=== PATIENT | male | born 1940 | race Caucasian/White ===

== ENCOUNTER 2023-10-19 13:22 | Emergency (ER) | payer MEDICARE, BC, SELFPAY ==
[2023-10-19] VITALS (7 sets, daily range): BP systolic 138–156; BP diastolic 71–90; PULSE 75–86; RESP 18; TEMP 36.4; O2SAT 94–97; BMI 25.4
[2023-10-19 14:46] LABS: Appearance Urine Cloudy (Clear); Bilirubin Urine Negative (Negative); Blood Urine Negative (Negative); Color Urine Yellow (Yellow); Glucose Urine Negative (Negative); Ketones Urine Negative (Negative); Leukocyte Esterase Urine Negative (Negative); Nitrite Urine Negative (Negative); Protein Urine 1+ (Negative); Urobilinogen Urine 0.2 (0.2-1.0)
--- NOTE | 2023-10-19 14:46 | ED.GENADULT ---
HPI - General Adult General Chief complaint: Unspecified Complaint, Adult Stated complaint: Dizziness, abdominal pain Time Seen by Provider: 10/19/23 14:46 History of Present Illness HPI narrative: Patient had sudden onset of abdominal pain , became diaphoretic and faint almost to the point of passing out. He then went to bathroom and had large episode of diarrhea and laid down in bedroom and then contacted EMS. Patient now denies pain but reports colonic cramping. 82-year-old man presenting to the emergency department for evaluation after nearly passed out. There is a history of atrial fibrillation and is anticoagulated. He reports the rather abrupt onset of some abdominal pain. He became sweaty and got lightheaded like he was about to pass out. Went to the bathroom had a large diarrheal episode. He laid down in his bedroom and a called EMS. He feels better now but having some cramping in his abdomen. No melena or hematochezia is reported. Is not having any chest pain or shortness of breath. No fever. No cough. No particular exposures to illness noted. I reviewed EKG prior to seeing Mr. Smith. No noted headache. Related Data Home Medications Medication Instructions Recorded Confirmed Eliquis 10/19/23 hydrochlorothiazide 10/19/23 verapamil 10/19/23 Allergies Allergy/AdvReac Type Severity Reaction Status Date / Time No Known Drug Allergies Allergy Verified 10/19/23 13:33 Review of Systems Status of ROS: Reports: 6 or more systems reviewed and unremarkable except as noted in History and below PFSH PFSH Social History Smoking Status: Never smoker How often do you have a drink containing alcohol: never AUDIT-C Alcohol total score: 0 Non-prescribed substance use: denies use Exam Narrative: Exam Narrative: Pleasant. NAD. Vitals look good at this time. Skin is warm and dry. No extremity edema. Moving all extremities without difficulty. Cranial nerves 2-12 intact. He is quite alert. Easily conversant. Pupils are equal. Heart actually sounds to be in fairly regular rhythm occasional ectopic beat. Lungs appear to be clear. Abdomen with quite active bowel sounds. Soft. Not particularly tender. Extremities without edema. Well-perfused. Const: Vital Signs, click to edit/add: Vital Signs - 24 hr 10/19/23 13:34 10/19/23 14:00 10/19/23 14:01 Temperature 97.5 F L Pulse Rate 81 79 Pulse Rate [Pulse Oximeter] 86 Respiratory Rate 18 Blood Pressure 138/90 H Blood Pressure [Ri ght Upper Arm] 156/71 H Pulse Oximetry 96 96 96 Oxygen Delivery Me thod Room Air 10/19/23 14:03 10/19/23 14:30 Temperature Pulse Rate 82 75 Pulse Rate [Pulse Oximeter] Respiratory Rate Blood Pressure 144/86 H Blood Pressure [Ri ght Upper Arm] Pulse Oximetry 97 97 Oxygen Delivery Me thod Documenting provider has reviewed patient's vital signs: yes Course Vital Signs Vital signs: Initial Vital Signs Temperature 97.5 F L 10/19/23 13:34 Temperature Source Temporal Artery Scan 10/19/23 13:34 Pulse Rate 86 10/19/23 13:34 Respiratory Rate 18 10/19/23 13:34 Blood Pressure 156/71 H 10/19/23 13:34 Blood Pressure Mean 99 10/19/23 13:34 Pulse Oximetry 96 10/19/23 13:34 Oxygen Delivery Method Room Air 10/19/23 13:34 Vital Signs Temperature 97.5 F L 10/19/23 13:34 Pulse Rate 86 10/19/23 13:34 Respiratory Rate 18 10/19/23 13:34 Blood Pressure 156/71 H 10/19/23 13:34 Pulse Oximetry 96 10/19/23 13:34 Oxygen Delivery Method Room Air 10/19/23 13:34 Temperature 97.5 F L 10/19/23 13:34 Pulse Rate 82 10/19/23 15:08 Respiratory Rate 18 10/19/23 13:34 Blood Pressure 142/76 H 10/19/23 14:32 Pulse Oximetry 96 10/19/23 15:08 Oxygen Delivery Method Room Air 10/19/23 13:34 Medical Decision Making MDM Narrative Medical decision making narrative: EKG and cardiac rehabilitation program director on arrival. Would have concerns of intracranial problem like bleed with history of anticoagulation but does seem well at this time. I suspect there was more likely vasovagal event here. Would offer further evaluation however. Mr. Smith suspects same and would prefer not to have further workup. We discussed potential risk. Had obtained a urinalysis. Unremarkable Monitored in the emergency department with stable vitals and otherwise asymptomatic. See patient discharge plan for further discussion Lab Data Lab results reviewed: Yes I reviewed the patient's lab results Labs: Lab Results 10/19/23 Range/Units 14:00 Urine Color Yellow (Yellow) Urine Appearance Cloudy A (Clear) Urine pH 7.0 (5.0-8.5) Ur Specific [place] 1.020 (1.000-1.030) Urine Protein 1+ A (Negative) Urine Glucose (UA) Negative (Negative) Urine Ketones Negative (Negative) Urine Blood Negative (Negative) Urine Nitrite Negative (Negative) Urine Bilirubin Negative (Negative) Urine Urobilinogen 0.2 (0.2-1.0) Ur Leukocyte Esterase Negative (Negative) Urine RBC 0-2 (0-2) Urine WBC 0-2 (0-5) Ur Squamous Epith Cells None (None-Few) Urine Bacteria None (None) ECG Data Attestation: I personally reviewed and interpreted this ECG as follows: (Atrial fibrillation. Partial right bundle-branch block. Rate of 76. No acute ischemic changes.) Discharge Plan Discharge Clinical Impression: Near syncope Patient Disposition: Home w/ Parent or Adult Condition: Stable Additional Instructions: Thanks for letting me check you out. Your vitals looked quite good today. I understand you want nothing further done; I respect that. Do stay well-hydrated. Typical recommendations are 2-3 L of water per day. Take care in transitions; slower movements perhaps. Return for persistent lightheadedness or dizziness, increasing shortness of breath or chest pain, repeated diarrhea. Prescriptions: No Action Eliquis hydrochlorothiazide verapamil Stand Alone Forms: [employer] Info Instructions
[2023-10-19 14:52] LABS: RBC Urine 0-2 (0-2); WBC Urine 0-2 (0-5)
== END 2023-10-19 16:08 | disposition home or self-care (01) ==
LOC: ED 16:07
PROVIDERS: Emergency Provider Family Medicine
DX: R55 Syncope and collapse (principal)
CPT/HCPCS: 81001; 93005; 99283; 99284